=== PATIENT | female | born 1990 | race Caucasian/White ===

== ENCOUNTER 2021-07-19 19:10 | Emergency (ER) | payer OTHER ==
[~2021-07-19] VITALS: Ht 157.5 cm; Wt 99.8 kg
[2021-07-19 19:35] VITALS: BP_SYST 158
[2021-07-19] MEDS ORDERED: METF-834 PO (19:41)
[2021-07-19] MEDS ORDERED: IBUP-1969 PO (23:43)
[2021-07-19] MEDS ORDERED: ONDA-8 TL (23:43)
[2021-07-19] MEDS ORDERED: ONDANSETRON 4 MG ODT TAB PO ONE (23:45)
[2021-07-19] MEDS ORDERED: ACETAMINOPHEN 500 MG TABLET PO ONE (23:45)
[2021-07-20] MEDS ORDERED: DIPH-TET-PERTUS Vaccine 0.5 ML VIAL (ADACEL) I.M. ONE (00:30)
[2021-07-20 00:31] VITALS: BP_SYST 124
== END 2021-07-20 00:31 | disposition home or self-care (01) ==
LOC: SED 19:10
DX: S06.0X0A Concussion without loss of consciousness, initial encounter (principal); S01.03XA Puncture wound without foreign body of scalp, initial encounter; Z79.899 Other long term (current) drug therapy; W22.8XXA Striking against or struck by other objects, initial encounter; Y93.89 Activity, other specified; Y92.89 Other specified places as the place of occurrence of the external cause; Y99.0 Civilian activity done for income or pay
CPT/HCPCS: 90471; 90715; 99283; Q0162